=== PATIENT | female | born 1975 | race Caucasian/White ===

== ENCOUNTER 2020-04-28 13:09 | Outpatient (REF) | payer MEDICARE, MEDICAID, SELFPAY ==
[2020-04-28 15:19] LABS: Erythrocyte Sedimentation Rate 7 MM/HR (0-20)
[2020-04-28 15:40] LABS: Thyroid Stimulating Hormone 2.91 mIU/mL (0.32-4.0)
[2020-04-28 15:46] LABS: T4 Thyroxine 6.8 ug/dL (4.5-12.0)
== END 2020-04-28 13:10 | disposition home or self-care (01) ==
LOC: HO.LAB 13:09
PROVIDERS: PCP Internal Medicine; Visit Provider Psychiatry & Neurology Neurology
DX: M79.7 Fibromyalgia (principal); H02.409 Unspecified ptosis of unspecified eyelid
CPT/HCPCS: 36415; 82550; 83519; 84436; 84443; 85652

== ENCOUNTER 2020-05-01 10:39 | Outpatient (REF) | payer MEDICARE, MEDICAID, SELFPAY ==
[2020-05-07 19:47] LABS: Acetylcholine Recep Modulating 6
[2020-05-07 20:32] LABS: Acetylcholine Receptor Binding <0.30 nmol/L
== END 2020-05-01 10:40 | disposition home or self-care (01) ==
LOC: HO.LAB 10:39
PROVIDERS: PCP Internal Medicine; Visit Provider Psychiatry & Neurology Neurology
DX: H02.409 Unspecified ptosis of unspecified eyelid (principal); M79.7 Fibromyalgia
CPT/HCPCS: 36415; 83519